=== PATIENT | female | born 1975 | race Caucasian/White ===

== ENCOUNTER 2023-11-30 05:02 | Outpatient (CLI) | payer BC, SELFPAY ==
[2023-11-30 16:19] LABS: TSH (W/Ref FT4) 3.09 uIU/mL (0.36-3.74)
== END 2023-11-30 05:03 | disposition home or self-care (01) ==
LOC: LBO 05:04
PROVIDERS: PCP General Practice; Visit Provider General Practice
DX: E03.9 Hypothyroidism, unspecified (principal)
CPT/HCPCS: 36415; 84443; 85025